=== PATIENT | male | born 1980 | race Caucasian/White ===

== ENCOUNTER 2025-10-13 04:43 | Emergency (ER) | payer OTHER, SELFPAY ==
[2025-10-13 04:49] VITALS: BP 149/93; PULSE 58; TEMP 36.6; O2SAT 99; BMI 31.6
--- NOTE | 2025-10-13 04:57 | ED.GENADUL1 ---
HPI HPI - General Adult General Chief complaint: Urogenital-Male Stated complaint: L SIDED BACK PAIN, Time Seen by Provider: 10/13/25 04:50 Source: patient Mode of arrival: walk-in History of Present Illness HPI narrative: 44-year-old male presents for left flank pain which woke him up from sleep about an hour ago. The pain is continuous and he has never had pain like this before. It is moderate to severe and he has not had any gross hematuria. No injury. Related Data Home Medications ?Medication ?Instructions ?Recorded ?Confirmed amitriptyline 10 mg tablet 10 mg PO DAILY 10/13/25 10/13/25 losartan 50 mg tablet 50 mg PO DAILY 10/13/25 10/13/25 sertraline 100 mg tablet (Zoloft) 50 mg PO DAILY 10/13/25 10/13/25 Previous Rx's ?Medication ?Instructions ?Recorded ondansetron 4 mg disintegrating 4 mg PO Q6H PRN nausea and 10/13/25 tablet vomiting #20 tabs oxycodone-acetaminophen 5 mg-325 1 tab PO Q6H PRN pain 5 days #20 10/13/25 mg tablet (Percocet) tabs tamsulosin 0.4 mg capsule (Flomax) 0.4 mg PO DAILY #7 caps 10/13/25 Allergies Allergy/AdvReac Type Severity Reaction Status Date / Time No Known Drug Allergies Allergy Verified 10/13/25 04:48 Opioid HPI Opioid Management Most Recent Opioid Data: Last ED Pain Assessment Today, 05:45 Review of Systems ROS Narrative A ten point review of systems is negative except as noted above. PFSH PFSH Social History Little interest or pleasure in doing things: not at all Feeling down, depressed, or hopeless: not at all Exam Narrative Exam Narrative: Nurses note and vital signs reviewed General:The patient appears uncomfortable. Skin:Warm, dry, no pallor noted.There is no rash noted. Head:Normocephalic, atraumatic Eye: Normal conjunctiva, no drainage Ears, Nose, Mouth, and Throat: oral mucosa is moist. Nares patent. Cardiovascular:Regular Rate and Rhythm Respiratory:Patient is in no distress, no accessory muscle use, lungs are clear to auscultation, no wheezing, rales or rhonchi Back:non-tender, no CVA tenderness bilaterally to percussion. GI: Soft and nontender, nondistended Musculoskeletal: The patient has no evidence of calf tenderness, no pitting edema, symmetrical pulses noted bilaterally Neurological:A&O, normal speech Psychiatric:Cooperative Constitutional Vital Signs, click to edit/add: Last Vital Signs Temp 97.8 F 10/13/25 04:49 Pulse 58 L 10/13/25 04:49 Resp 20 10/13/25 04:49 BP 149/93 H 10/13/25 04:49 Pulse Ox 99 10/13/25 04:49 Course Vital Signs Vital signs: Vital Signs Temperature 97.8 F 10/13/25 04:49 Pulse Rate 58 L 10/13/25 04:49 Respiratory Rate 20 10/13/25 04:49 Blood Pressure 149/93 H 10/13/25 04:49 Pulse Oximetry 99 10/13/25 04:49 Temperature 97.8 F 10/13/25 04:49 Pulse Rate 58 L 10/13/25 04:49 Respiratory Rate 20 10/13/25 04:49 Blood Pressure 149/93 H 10/13/25 04:49 Pulse Oximetry 99 10/13/25 04:49 Medical Decision Making MDM Narrative Medical decision making narrative: Proximal 5 mm stone is identified. He was given morphine and then Toradol and feels much better and is requesting discharge home. He was discharged home with prescriptions for Percocet and Zofran and Flomax and follow-up with urology. Urine strainer and specimen cup given. Treatment diagnosis and follow-up were discussed with the patient and his . Differential Diagnosis Differential Diagnosis: Kidney stone, UTI, muscle strain Lab Data Lab results reviewed: Yes I reviewed the patient's lab results Labs: Lab Results 10/13/25 10/13/25 Range/Units 05:05 05:50 WBC 7.1 (4.0-11.0) 10^3/uL RBC 4.76 (4.70-6.10) 10^6/uL Hgb 15.8 (14.0-18.0) g/dL Hct 43.2 (42.0-54.0) % MCV 90.8 (80.0-94.0) fL MCH 33.2 (25.9-34.0) pg MCHC 36.6 H (29.9-35.2) g/dL RDW 11.0 (11.0-15.0) % Plt Count 246 (150-450) 10^3/uL MPV 9.5 (9.5-13.5) fL Neut % (Auto) 51.6 (43.0-75.0) % Lymph % (Auto) 34.1 (20.5-60.0) % [place] % (Auto) 11.0 (1.7-12.0) % Eos % (Auto) 2.7 (0.9-7.0) % Baso % (Auto) 0.3 (0.2-2.0) % Neut # (Auto) 3.7 (1.4-6.5) 10^3/uL Lymph # (Auto) 2.4 (1.2-3.8) 10^3/uL [place] # (Auto) 0.8 (0.3-0.8) 10^3/uL Eos # (Auto) 0.2 (0.0-0.7) 10^3/uL Baso # (Auto) 0.0 (0.0-0.1) 10^3/uL Abs Immat Gran (auto) 0.02 (0.00-0.03) 10^3/uL Imm/Tot Granulo (auto) 0.3 (0.0-0.5) % Sodium 140 (136-145) mmol/L Potassium 3.5 (3.5-5.1) mmol/L Chloride 106 (98-107) mmol/L Carbon Dioxide 28.5 (21.0-32.0) mmol/L Anion Gap 9.0 BUN 13.0 (7.0-18.0) mg/dL Creatinine 0.96 (0.70-1.30) mg/dL Est GFR ( Amer) >60 (>=60 mL/min/1.73m^2) Est GFR (Non-Af Amer) >60 (>=60 mL/min/1.73m^2) BUN/Creatinine Ratio 13.5 Glucose 109 H (74-106) mg/dL Calcium 8.9 (8.5-10.1) mg/dL Urine Color Yellow (YELLOW) Urine Clarity Clear (CLEAR) Urine pH 7.5 (5.0-9.0) Ur Specific [place] 1.010 (1.005-1.025) Urine Protein Negative (NEG/TRACE) mg/dL Urine Glucose (UA) Negative (NEGATIVE) mg/dL Urine Ketones Negative (NEGATIVE) mg/dL Urine Occult Blood Moderate A (NEGATIVE) Urine Nitrite Negative (NEGATIVE) Urine Bilirubin Negative (NEGATIVE) Urine Urobilinogen 4.0 A (0.2-1.0) EU/dL Ur Leukocyte Esterase Negative (NEGATIVE) Urine RBC 2-5 A (0-2) #/HPF Urine WBC 0-2 A (NONE SEEN) #/HPF Ur Squamous Epith Cells Rare (NONE/RARE) #/LPF Urine Crystals None seen (None Seen) #/HPF Amorphous Sediment Few Urine Bacteria Trace A (NONE SEEN) #/HPF Urine Casts None seen (NONE SEEN) #/LPF Urine Mucus Trace A (NONE SEEN) Ur Culture Indicated? No Imaging Data CT scan - abdomen: My impression: 5 mm proximal ureteral stone on left side Discharge Plan Discharge Chief Complaint: Urogenital-Male Clinical Impression: Kidney stone on left side Patient Disposition: Home, Self-Care Time of Disposition Decision: 06:53 Condition: Good Mode of Transportation: Private Vehicle Prescriptions / Home Meds: New oxycodone-acetaminophen [Percocet] 5-325 mg tablet 1 tab PO Q6H PRN (Reason: pain) 5 Days Qty: 20 0RF tamsulosin [Flomax] 0.4 mg capsule 0.4 mg PO DAILY Qty: 7 0RF ondansetron 4 mg tablet,disintegrating 4 mg PO Q6H PRN (Reason: nausea and vomiting) Qty: 20 0RF No Action amitriptyline 10 mg tablet 10 mg PO DAILY sertraline [Zoloft] 100 mg tablet 50 mg PO DAILY losartan 50 mg tablet 50 mg PO DAILY Print Language: Bulgarian Instructions: Kidney Stones (ED), How to Strain Your Urine (ED) Referrals: Joie Chowdhury NP [Primary Care Provider] - 1 week Axel Almeida MD [Physician, Urology]
--- OUTSIDE RECORDS SUMMARY | 2025-10-13 05:03 | XMS_ITS | Clinical Summary ---
Author Organization [facility] Address [id number] [address] [place] [address] Care Team Providers Care Market Developer Name Role Phone Arturo Esparza MD Primary Care Provider [phone] Allergies No known active allergies Medications MedicationSigDispense QuantityRefillsLast FilledStart DateEnd DateStatus sertraline (ZOLOFT) 100 mg tablet Take 100 mg by mouth daily.04/04/2018Active Active Problems ProblemNoted DateDiagnosed AnynIuvvtgwmwz63/04/2022Obsessive-compulsive disorder 09/01/2022 Overview (09/01/2022): 08/2005 Intractable chronic migraine without aura and without status migrainosus 09/23/20202648Zoourme93/24/2018General medical exam04/12/20181124Yucwineb19/25/2018 Wqsvruc8606/21/20175392Jvyqbhzsn32/14/6869Cnflniwrbpj19/01/2005 Overview (09/01/2022): EGD Dr. Milligan Headache, ugtpyrds16/01/2005 Immunizations ImmunizationAdministration DatesNext DueDT05/25/1998Influenza (IM) Preservative Free08/28/2016Influenza, Injectable, quadrivalent (PF)09/10/2021,09/05/2020, 08/22/2019,07/21/2018,07/23/20170415Yppczby19/01/1999Tetanus Toxoid, Unspecified 09/29/1999 Family History Medical HistoryRelationNameCommentsAnxiety disorderBrotherDepressionBrotherNo Known ProblemsFatherNo Known ProblemsMotherAnxiety disorderSisterDepression SisterRelationNameStatusCommentsBrotherAliveFatherAliveMotherAliveSisterAlive Social History Tobacco UseTypesPacks/DayYears UsedDateSmoking Tobacco: NeverSmokeless Tobacco: Never Tobacco Cessation:Counseling Given: Not Answered Alcohol UseStandard Drinks/WeekCommentsYes0 (1 standard drink = 0.6 oz pure alcohol)rarelyPHQ-2AnswerDate RecordedTotal Tmgoe344hildcareAnswerDate XyhxthaqNclewcyaeUhzjfrj13/13/2019EmploymentAnswerDate RecordedEmploymentUnknown 05/11/2019Hunger ScreeningAnswerDate RecordedWithin the past 12 months we worried whether our food would run out before we got money to buy more.Never True07/12/2023Within the past 12 months the food we bought just didn't last and we didn't have money to get more.Never True07/12/2023urpose - LifeAnswerDate RecordedPurpose and direction in xrbmFjgctrf88/11/2021ex and Gender Information ValueDate RecordedSex Assigned at BirthNot on fileLegal WcxMxwq7604/04/2018 1:57 PM EDTGender IdentityNot on fileSexual OrientationNot on file Last Filed Vital Signs Vital SignReadingTime TakenCommentsBlood Njjiaajc398/8407/12/2023 4:06 PM EDT Opwgw476507/12/2023 4:06 PM QYEKzrzuuszvfx81 ??C (98.6 ??F)07/12/2023 4:06 PM EDT Respiratory Emwk8335 4:06 PM EDTOxygen Gqoqevivjo22%07/12/2023 4:06 PM EDTInhaled Oxygen Concentration--Ftbwza366.4 kg (261 lb)07/12/2023 4:06 PM EDT Xpsyvq730 cm (6' 4 )07/12/2023 4:06 PM EDTBody Mass Index31.77007/12/2023 4:06 PM EDT Plan of Treatment Health MaintenanceDue DateLast DoneCommentsTobacco Uesthznib08/16/1991DTaP,Tdap and Td Vaccines (2 - Tdap)05/25/Adult BMI Uenjbdyno62/14/2024 3Depression Slawjpeny78/3COVID-19 Vaccine ( season)503/, 01/22/2021Influenza Odyvpbw37/09/2022, 09/10/2021, 09/05/2020, Additional history exists Medical Devices Not on file Care Teams Team MemberRelationshipSpecialtyStart DateEnd Date Gase, Arturo Agosto MD [facility] - [facility]04/12/18
--- OUTSIDE RECORDS SUMMARY | 2025-10-13 05:03 | XMS_ITS | Clinical Summary ---
Author Organization [facility] Address [address] [facility], [address] [place] [address] Care Team Providers Care Diagrammer Name Role Phone Joie Chowdhury MANAGER CIVIL - SHOESHINER Primary Care Provide r Allergies Active AllergyReactionsCriticalityNoted XydeLfgdmlwsUrswk51/18/2020 Dust mites, rag weed Medications MedicationSigDispense QuantityRefillsLast FilledStart DateEnd DateStatus Multiple Vitamins-Minerals (DAILY MULTIVITAMIN PO) Take by mouth dailyActive amitriptyline (ELAVIL) 10 MG tablet Take 1 tablet by mouth nightly 90 tablet 4Active sertraline (ZOLOFT) 100 MG tablet Take 1 tablet by mouth daily 90 tablet 5Active vitamin D (VITAMIN D, CHOLECALCIFEROL,) 25 MCG (1000 UT) TABS tablet Take 1 tablet by mouth dailyActive losartan (COZAAR) 50 MG tablet TAKE 1 TABLET BY MOUTH EVERY DAY 90 tablet 3085Active Active Problems ProblemNoted DateDiagnosed DateVitamin D /12/2025Primary /19/2023Intractable chronic migraine without aura and without status kxzdngjiroa78/26/2020Depression, major, in zmcxmqryl17/21/2019Obesity 06/21/20188147Dcjqcoe88/24/2017Obsessive-compulsive disorder Overview (08/26/2016): 08/2005 Resolved Problems ProblemNoted DateDiagnosed DateResolved DateStrain of gluteus medius of right lower oauujwzom97InsomniaHematuria Routine general medical examination at a health care rylnrmrs53HeadacheHeadache, migraine Depression12/18/2024 Encounters DateTypeDepartmentCare PubpWatozgqmslr37/24/2025Ref[facility] [address] [place] [address] [address] [place] [address] Joie Chowdhury, MANAGER CIVIL - SHOESHINER Medication Refillfrom Last 3 Months Immunizations ImmunizationAdministration DatesNext DueCOVID-19, Inactive, MODERNA BLUE border, Primary or Immunocompromised, (age 12y+)02/21/2021,1DT (pediatric) 05/25/1998Influenza Virus Drkzham3909/12/2024,09/10/2021,09/05/2020,08/22/2019, 07/21/2018,07/23/2017,08/28/2016Influenza, AFLURIA (age 3 y+), FLUZONE, (age 6 mo+), Quadv MDV, 0.5mL08/28/2016Influenza, FLUARIX, FLULAVAL, FLUZONE (age 6 mo+) and AFLURIA, (age 3 y+), Quadv PF, 0.5mL09/02/2023,09/08/2022,09/10/2021, 09/05/2020,08/22/2019,07/21/2018,07/23/20172956Zkgmkte07/01/1999Tetanus Toxoid, iemdidru68/01/1999 Family History Medical HistoryRelationNameCommentsDepressionBrotherGregHeart DiseaseFatherRick TachycardiaHigh Blood PressureFatherRickOtherFatherRickpolycythemia, hereditary hemochromatosis, BPH, Orthostatic Hypertension, Iron overloadElevated Lipids MotherSueMigrainesMotherSueOtherMotherSueRestrictive Airway Disease, Sinusitis CancerPaternal GrandfatherGeorgeProstateDepressionSisterAnnaRelationNameStatus CommentsBrotherGregAliveFatherRickAliveMotherSueAlivePaternal GrandfatherGeorge SisterAnnaAlive Social History Tobacco UseTypesPacks/DayYears UsedDateSmoking Tobacco: NeverSmokeless Tobacco: Never Tobacco Cessation:Counseling Given: Not Answered Alcohol UseStandard Drinks/WeekCommentsNot Currently0 (1 standard drink = 0.6 oz pure alcohol)social on the weekendsAHC UtilitiesAnswerDate RecordedIn the past 12 months has the [facility], gas, oil, or water [employer] threatened to shut off services in your home?No12/18/2024Overall Financial Resource Strain (CARDIA) AnswerDate RecordedHow hard is it for you to pay for the very basics like food, housing, medical care, and heating?Not hard at all06/22/2023HQ-2AnswerDate RecordedPHQ-9 Total Nkbns837Hunger Vital SignAnswerDate RecordedWithin the past 12 months, you worried that your food would run out before you got the money to buymore.Never true12/18/2024Within the past 12 months, the food you bought just didn't last and you didn't have money to get more.Never true 12/18/2024PRAPARE - TransportationAnswerDate RecordedIn the past 12 months, has lack of transportation kept you from medical appointments or from getting medications?No12/18/2024In the past 12 months, has lack of transportation kept you from meetings, work, or from getting things needed for daily living?No 12/18/2024Housing Stability Vital SignAnswerDate RecordedUnable to Pay for Housing in the Last YearNot on file06/22/2023Number of Places Lived in the Last YearNot on file06/22/2023In the last 12 months, was there a time when you did not have a steady place to sleep or slept in odellelter (including now)?No 06/22/2023Housing Stability Vital SignAnswerDate RecordedIn the last 12 months, was there a time when you were not able to pay the mortgage or rent on time?No 12/18/2024In the past 12 months, how many times have you moved where you were living?t any time in the past 12 months, were you homeless or living in a snf (including now)?No12/18/2024Food InsecurityAnswerDate Recorded Within the past 12 months, you worried that your food would run out before you got the money to buymore.Within the past 12 months, the food you bought just didn't last and you didn't have money to get more.Sex and Gender InformationValueDate RecordedSex Assigned at BirthNot on fileLegal Sex Male01/07/2013 3:50 AM ESTGender IdentityNot on fileSexual OrientationNot on fileOccupationIndustryJob Start DateJob End Date[employer]-Teacher (world history)Not on fileNot on fileNot on file Last Filed Vital Signs Vital SignReadingTime TakenCommentsBlood Bfsuudhs217/7207 8:46 AM EDT Ogqgv416806/26/2025 8:46 AM CKGMjlofgbvode39.9 ??C (96.6 ??F)06/26/2025 8:46 AM EDTRespiratory Bxgh0723 8:08 AM EDTOxygen Ndsstgqdbg25%06/26/2025 8:46 AM EDTInhaled Oxygen Concentration--Doyvoe097.1 kg (278 lb)06/26/2025 8:46 AM URCNatxwj288 cm (6' 3.98 )12/14/2023 8:35 AM ESTBody Mass Index33.85012/14/2023 8:35 AM EST Plan of Treatment DateTypeDepartmentCare Team (Latest Contact Info)Qhecjtpsnlp89/19/2026 7:40 AM ESTOffice Visit [facility] [address] [place] [address] [address] [place] [address] Joie Chowdhury, MANAGER CIVIL - SHOESHINER [address] [facility] [address] [facility] [place] [address] 6 month f/uHealth MaintenanceDue DateLast DoneCommentsHepatitis B vaccine (1 of 3 - 19+ 3-dose series)1998DTaP/Tdap/Td vaccine (2 - Tdap)05/25/2008 05/25/19981579Pqjimvimygf19/16/2024FIT/FOBT: Average risk2024Sigmoidoscopy/CT reslwvpdvfbq39/16/2024Flu vaccine (#1)510/, 09/02/2023, 09/08/2022, Additional history existsCOVID-19 Vaccine ( - 2024- season) 503/, 1Depression Ojcqshogxa48/20/00936812/18/2024, 5Colorectal Cancer Pzylly1302/07/2028Fecal-DNA (Cologuard): Average risk 803/09/20250882Bcfuoh68, 12/13/2024, 06/30/2023, Additional history existsHIV pbzxndGnljcdixj82/02/2023Hepatitis C screen Wkajzhxlr83/02/2023Diabetes ntglnrUpcbuadptfwc49/15/2025, 06/29/2022, 07/01/2020, Additional history existsHPV vaccine (No Doses Required)Completed Hepatitis A vaccineAged OutNo longer eligible based on patient's age to complete this topicHib vaccineAged OutNo longer eligible based on patient's age to complete this topicMeningococcal (ACWY) vaccineAged OutNo longer eligible based on patient's age to complete this topicMeningococcal B vaccineAged OutNo longer eligible based on patient's age to complete this topicPneumococcal 0-49 years VaccineAged OutNo longer eligible based on patient's age to complete this topic Polio vaccineAged OutNo longer eligible based on patient's age to complete this topic Procedures Procedure NamePriorityDate/TimeAssociated DiagnosisCommentsLIPID PANELRoutine 06/22/2025 9:18 AM EDT Wellness examination FECAL DNA COLORECTAL CANCER SCREENING (COLOGUARD)Osmnlav2602/06/2025 9:15 PM EDT Encounter for colorectal cancer screening HEMOGLOBIN G4SYokaoyp14/15/2025 1:30 PM EST Wellness examination HIV YUOMMIMzpodua21/02/2023 11:20 AM EDT Wellness examination Encounter for screening for HIV HEPATITIS C DFKWDXPLNzsvtts16/02/2023 11:20 AM EDT Wellness examination Need for hepatitis C screening test from Last 3 Months or Most Recently Relevant to Health Maintenance Results * (ABNORMAL) Lipid Panel (06/22/2025 9:18 AM EDT)ComponentValueRef RangeTest MethodAnalysis TimePerformed AtPathologist SignatureCholesterol, Cczjl983(H)0 - 199 mg/dL06/22/2025 9:18 AM EDTMERCY LABORATORIESComment: Cholesterol Guidelines: <200 Desirable 200-240 ??Borderline >240 Undesirable HDL39(L)>40 mg/dL06/22/2025 9:18 AM EDTMERCY LABORATORIESComment: HDL Guidelines: <40 Undesirable 40-59 ?Borderline >59 Desirable LDL Echmwddxfdu952(H)0 - 100 mg/dL06/22/2025 9:18 AM EDTMERCY LABORATORIES Comment: LDL Guidelines: <100 Desirable 100-129 ?? Near to/above Desirable 130-159 ?? Borderline >159 Undesirable Direct (measured) LDL and calculated LDL are not interchangeable tests. Chol/HDL Ratio5.1(H)<5.007 9:18 AM EDTMERCY OKTGDNYGFREMWsrggsgvxwslr134 <150 mg/dL06/22/2025 9:18 AM EDTMERCY LABORATORIESComment: Triglyceride Guidelines: <150 Desirable 150-199 ??Borderline 200-499 ??High >499 Very high Based on AHA Guidelines for fasting triglyceride, August 2012. AYTZ408 - 30 mg/dL06/22/2025 9:18 AM EDTMERCY LABORATORIESSpecimen (Source) Anatomical Location / LateralityCollection Method / VolumeCollection Time Received TimeBloodBLOOD SPECIMEN / Hguelfg4506/22/2025 9:18 AM EDT06/22/2025 9:19 AM EDT Narrative Authorizing ProviderResult TypeResult StatusJoie Chwodhury MANAGER CIVIL - CNPCHEMISTRY ORDERABLESFinal ResultPerforming OrganizationAddressCity/State/ZIP CodePhone Number [facility] [address] [place] [address], [facility] [phone] [facility] [address] [place] [address], [facility] [phone] * Fecal DNA Colorectal cancer screening (Cologuard) (02/06/2025 9:15 PM EDT) ComponentValueRef RangeTest MethodAnalysis TimePerformed AtPathologist SignatureFIT-DNA (Cologuard)RqbufcdrSssimdrs79/18/2025 4:37 AM EDSwapsee (CLIA #:[id number])Comment: NEGATIVE TEST RESULT. A negative Cologuard result indicates a low likelihood that a colorectal cancer (CRC) or advanced adenoma (adenomatous polyps with more advanced pre-malignant features) ??is present. The chance that a person with a negative Cologuard test has a colorectal cancer is less than 1in 1500 (negative predictive value >99.9%) or has an advanced adenoma is less than 5.3% (negative predictive value 94.7%). These data are based on a prospective cross-sectional study of 10,000individuals at average risk for colorectal cancer who were screened with both Cologuard and colonoscopy. (Sterling Palencia al, N Engl J Med 2014;370(14):7135-6464) The normal value (reference range) for this assay is negative. COLOGUARD RE-SCREENING RECOMMENDATION: Periodic colorectal cancer screening is an important part ofpreventive healthcare for asymptomatic individuals at average risk for colorectal cancer. ??Following a negative Cologuard result, the [place] [employer] Society and U.S. Multi-Society Task Force screening guidelines recommend a Cologuard re-screening interval of 3 years. References: [place] [employer] Guideline for Colorectal Cancer Screening: https://www.cancer.or g/cancer/herdk-wqewmn-zesmxn/pxaiqvbia-ljozdumxi-aqplqae/acs-recommendations.htm carole; Aditya SONG, Bennett TRIANA, Julianna FLOREZ, Colorectal Cancer Screening: Recommendations for Physicians and Patients from the U.S. Multi-Society Task Force on Colorectal Cancer Screening , Am J Gastroenterology 2017; 112:6574-4359. TEST DESCRIPTION: Composite algorithmic analysis of stool DNA-biomarkers with hemoglobin immunoassay. ?? Quantitative values of individual biomarkers are not reportable and are not associated with individual biomarker result reference ranges. Cologuard is intended for colorectal cancer screening ofadults of either sex, 45 years or older, who are at average-risk for colorectal cancer (CRC). Cologuard has been approved for use by the U.S. FDA. The performance of Cologuard was established in a cross sectional study of average-risk adults aged 50-84. Cologuard performance in patients ages 45 to 49 years was estimated by sub-group analysis of near-age groups. Colonoscopies performed for a positive result may find as the most clinically significant lesion: colorectal cancer [4.0%], advanced adenoma (including sessile serrated polyps greater than or equal to 1cm diameter) [20%] or non- advanced adenoma [31%]; or no colorectal neoplasia [45%]. These estimates are derived from a prospective cross-sectional screening study of 10,000 individuals at average risk for colorectal cancer who were screened with both Cologuard and colonoscopy. (Sterling Cortes et al, N Engl J Med 2014;370(14):7385-3401.) Cologuard may produce a false negative or false positive result (no colorectal cancer or precancerous polyp present at colonoscopy follow up). A negative Cologuard test result does not guarantee the absence of CRC or advanced adenoma (pre-cancer). The current Cologuard screening interval is every 3 years. ([place] [employer] and U.S. Multi-Society Task Force). Cologuard performance data in a 10,000 patient pivotal study using colonoscopy as the reference method can be accessed at the following location: www.[employer].to be/results. Additional description of the Cologuard test process, warnings and precautions can be found at www.cologuard.com. Specimen (Source)Anatomical Location / LateralityCollection Method / Volume Collection TimeReceived TimeFeces (substance)STOOL SPECIMEN / Iozrnny1602/06/2025 9:15 PM EDT02/08/2025 3:56 PM EDT Narrative Authorizing ProviderResult TypeResult StatusJoie Chowdhury MANAGER CIVIL - SHOESHINER MICROBIOLOGY - GENERAL ORDERABLESFinal ResultPerforming OrganizationAddress [facility]/State/ZIP CodePhone Number [facility] (CLIA #:[id number]) [address] [place] [address], [facility] [phone] * Hemoglobin A1C (12/13/2024 1:30 PM EST)ComponentValueRef RangeTest Method Analysis TimePerformed AtPathologist SignatureHemoglobin A1C4.04.0 - 6.0 % 12/13/2024 1:30 PM ESTMERCY LABORATORIESEstimated Avg Vxcixee61xg/dL12/13/2024 1:30 PM ESTMERCY LABORATORIESComment: The ADA and AACC recommend providing the estimated average glucose result to permit better patient understanding of their HBA1c result. Specimen (Source)Anatomical Location / LateralityCollection Method / Volume Collection TimeReceived TimeBloodBLOOD SPECIMEN / Iqeoirt9612/13/2024 1:30 PM EST 12/13/2024 1:31 PM EST Narrative Authorizing ProviderResult TypeResult Kurt Chowdhury MANAGER CIVIL - CNPCHEMISTRY ORDERABLESFinal ResultPerforming OrganizationAddressCity/State/ZIP CodePhone Number [facility] [address] [place] [address], [facility] [phone] [facility] [address] [place] [id number], [facility] [phone] * Hepatitis C Antibody (06/30/2023 11:20 AM EDT)ComponentValueRef RangeTest MethodAnalysis TimePerformed AtPathologist SignatureHepatitis C AbNONREACTIVE IKFXDGMSKGM14/02/2023 11:20 AM EDTMERCY LABORATORIESComment: ? The hepatitis C procedure used in our laboratory is a Chemiluminescent test specific for three recombinant HCV antigens. ??A negative anti-HCV result indicates that the antibodies to hepatitis C virus are not present at this time. Individuals with reactive anti-HCV should be considered infected and infectious until proven otherwise. ??Confirmation of all equivocal or reactive results is recommended by ordering HCV RNA by PCR. Specimen (Source)Anatomical Location / LateralityCollection Method / Volume Collection TimeReceived TimeBLOOD SPECIMEN / Jbokbsd9606/30/2023 11:20 AM EDT 06/30/2023 11:21 AM EDT Narrative Authorizing ProviderResult TypeResult StatusHannah M Chowdhury MANAGER CIVIL - CNPIMMUNOLOGY ORDERABLESFinal ResultPerforming OrganizationAddressCity/State/ZIP CodePhone Number [facility] [address] [place] [address] [phone] * HIV Screen (06/30/2023 11:20 AM EDT)ComponentValueRef RangeTest MethodAnalysis TimePerformed AtPathologist SignatureHIV Ag/AbNONREACTIVENONREACTIVE 06/30/2023 11:20 AM EDTMERCY LABORATORIESComment: No laboratory evidence of HIV infection. ??If acute HIV infection is suspected, consider testing for HIV-1 RNA. Specimen (Source)Anatomical Location / LateralityCollection Method / Volume Collection TimeReceived TimeBLOOD SPECIMEN / Isycwun7506/30/2023 11:20 AM EDT 06/30/2023 11:21 AM EDT Narrative Authorizing ProviderResult TypeResult StatusJoie Chowdhury APRN - CNPIMMUNOLOGY ORDERABLESFinal ResultPerforming OrganizationAddressCity/State/ZIP CodePhone Number [facility] [address] [place] [address] [phone] from Last 3 Months or Most Recently Relevant to Health Maintenance Insurance Care Teams Team MemberRelationshipSpecialtyStart DateEnd Date Joie Chowdhury, MANAGER CIVIL - SHOESHINER [facility] [address] [address] PCP - GeneralFamily Nurse Practitioner12/08/22
[2025-10-13] MEDS: MORPHINE SULFATE 4 MG/ML VIAL IV (05:13)
[2025-10-13 05:14] LABS: Hematocrit 43.2 % (42.0-54.0); Hemoglobin 15.8 g/dL (14.0-18.0); Immature Granulocytes Abs Auto 0.02 10^3/uL (0.00-0.03); Immature Granulocytes Pct Auto 0.3 % (0.0-0.5); Lymphocytes Absolute Auto 2.4 10^3/uL (1.2-3.8); Mean Corpuscular HGB Conc 36.6 g/dL (29.9-35.2); Mean Corpuscular Hemoglobin 33.2 pg (25.9-34.0); Mean Corpuscular Volume 90.8 fL (80.0-94.0); Platelet Count 246 10^3/uL (150-450); Red Blood Count 4.76 10^6/uL (4.70-6.10); White Blood Count 7.1 10^3/uL (4.0-11.0)
[2025-10-13 05:22] LABS: Anion Gap 9.0; Blood Urea Nitrogen 13.0 mg/dL (7.0-18.0); Calcium 8.9 mg/dL (8.5-10.1); Carbon Dioxide 28.5 mmol/L (21.0-32.0); Chloride 106 mmol/L (98-107); Estimated GFR (African America >60 (>=60 mL/min/1.73m^2); Estimated GFR (Non-African Ame >60 (>=60 mL/min/1.73m^2); Glucose 109 mg/dL (74-106); Potassium 3.5 mmol/L (3.5-5.1); Sodium 140 mmol/L (136-145)
[2025-10-13 05:55] LABS: Glucose Urine UA NEGATIVE (NEGATIVE)
[2025-10-13 06:03] LABS: Cast Seen? NONE SEEN #/LPF (NONE SEEN); Crystals Seen? None Seen #/HPF (None Seen); Urine Culture Indicated NO
[2025-10-13] MEDS: KETOROLAC TROMETHAMINE 30 MG/ML VIAL IVP (06:07)
== END 2025-10-13 07:07 | disposition home or self-care (01) ==
PROVIDERS: Emergency Provider Emergency Medicine; PCP Nurse Practitioner Women's Health
DX: N20.0 Calculus of kidney (principal)
CPT/HCPCS: 36415; 74176; 80048; 81001; 85025; 96374; 96375; 99285; J1885; J2270; J2405

== ENCOUNTER 2025-10-13 16:53 | Observation (INO) | payer OTHER, SELFPAY ==
[2025-10-13 16:57] VITALS: BP 147/94; PULSE 76; TEMP 37; O2SAT 98; BMI 31.1
--- NOTE | 2025-10-13 17:08 | XR_ITS ---
[facility] [place] [id number] Patient Name: SARAI HEWITT MRN: [id number] date: 1980 Sex: M Assigned Patient Location: ER Current Patient Location: ER Accession/Order Number: [id number] Exam Date: 10/13/2025 17:55 Report Date: 10/13/2025 18:28 At the request of: BASIM MINOR MD Procedure: XR abdomen 1V Single view of abdomen Comparison CT of the abdomen and pelvis 10/13/2025 demonstrating a 4 mm obstructing stone of the left ureteropelvic junction. Large amount stool overlies the kidneys limiting assessment. The obstructing stone not well visualized. Pelvic phleboliths present. Bony structures intact. XR/XR abdomen 1V IMPRESSION: Moderate stool overlying the kidneys limiting assessment. Left UPJ stone not well visualized. Impression dictated by: Basim Krishnan M.D. 10/13/2025 6:28 PM Dictation Location: [place] [address] Electronically authenticated by: [id number] Y Date: 10/13/2025 18:28
[2025-10-13 17:20] LABS: Hematocrit 43.2 % (42.0-54.0); Hemoglobin 16.0 g/dL (14.0-18.0); Immature Granulocytes Abs Auto 0.05 10^3/uL (0.00-0.03); Immature Granulocytes Pct Auto 0.4 % (0.0-0.5); Lymphocytes Absolute Auto 1.5 10^3/uL (1.2-3.8); Mean Corpuscular HGB Conc 37.0 g/dL (29.9-35.2); Mean Corpuscular Hemoglobin 33.5 pg (25.9-34.0); Mean Corpuscular Volume 90.6 fL (80.0-94.0); Platelet Count 247 10^3/uL (150-450); Red Blood Count 4.77 10^6/uL (4.70-6.10); White Blood Count 12.3 10^3/uL (4.0-11.0)
[2025-10-13] MEDS: HYDROMORPHONE HCL 1 MG/ML CARTRIDGE IV (17:31)
[2025-10-13] MEDS: 0.9 % SODIUM CHLORIDE 1,000 ML 999 ML IV (17:31)
[2025-10-13] MEDS: KETOROLAC TROMETHAMINE 30 MG/ML VIAL 15 MG IVP (17:32)
--- NOTE | 2025-10-13 17:40 | ED.GENADUL1 ---
HPI HPI - General Adult General Chief complaint: Abdominal Pain Stated complaint: PAIN FROM POSS KIDNEY STONE Time Seen by Provider: 10/13/25 17:00 Source: patient Mode of arrival: walk-in Limitations: no limitations History of Present Illness HPI narrative: Patient is a 44-year-old male who is presenting today with return of acute left lower back pain, left flank pain, left lower quadrant pain. Patient was just seen her earlier today and discharged around 7 AM. Patient was noted to have approximately 5 mm left kidney stone. Patient has no history of kidney stones. Patient has no fevers. Patient has no chest pain or shortness of breath. Patient dad is at bedside. Patient has no urinary frequency urgency or burning. Patient has no diarrhea or constipation. Unless otherwise stated in this report or unable to obtain because of the patient's clinical or mental status as evidenced by medical record, the patient's positive and negative responses for review of systems for constitutional, eyes, ENT, cardiovascular, respiratory, gastrointestinal, neurological, , musculoskeletal, and integument systems and related systems to the presenting problem are either stated in the history of present illness or were not pertinent or were negative for the symptoms and/or complaints related to the presenting medical problem. Nurses note and vital signs reviewed and patient is not hypoxic. General: The patient appears in moderate distress secondary to pain, clammy/diaphoretic, holding his left flank and left lower back. Patient is resting uncomfortably on cart. Patient is not toxic, lethargic, or listless Skin: Warm, dry, no pallor noted. There is no rash noted. No petechiae, purpura. Head: Normocephalic, atraumatic Eye: Normal conjunctiva, no drainage, EOMI. PERRL Ears, Nose, Mouth, and Throat: oral mucosa is moist. Nares patent. Mouth without vesicles. Cardiovascular: Regular Rate and Rhythm, no murmur, gallop, rub Respiratory: Patient is in no distress, no accessory muscle use, lungs are clear to auscultation, no wheezing, rales or rhonchi Back: non-tender besides left moderate CVA tenderness to palpation, no right CVA tenderness to percussion. No CT LS midline pain. GI: no tenderness to palpation, no masses appreciated. No rebound, guarding, or rigidity noted. No distention; patient has moderate left flank and moderate left lower quadrant tenderness to palpation. No right flank tenderness to palpation, no right lower quadrant tenderness to palpation. Mild suprapubic tenderness to palpation. Musculoskeletal: Patient has full range of motion of all of the extremities, no motor, sensory, or focal neurological deficits Neurological: A&O x4, normal speech Psychiatric: Cooperative Related Data Home Medications ?Medication ?Instructions ?Recorded ?Confirmed amitriptyline 10 mg tablet 10 mg PO DAILY 10/13/25 10/13/25 losartan 50 mg tablet 50 mg PO DAILY 10/13/25 10/13/25 sertraline 100 mg tablet (Zoloft) 50 mg PO DAILY 10/13/25 10/13/25 Previous Rx's ?Medication ?Instructions ?Recorded ketorolac 10 mg tablet 10 mg PO Q8H PRN pain 1 day #10 10/13/25 tabs ondansetron 4 mg disintegrating 4 mg PO Q6H PRN nausea and 10/13/25 tablet vomiting #20 tabs oxycodone-acetaminophen 5 mg-325 1 tab PO Q6H PRN pain 5 days #20 10/13/25 mg tablet (Percocet) tabs tamsulosin 0.4 mg capsule (Flomax) 0.4 mg PO DAILY #7 caps 10/13/25 Allergies Allergy/AdvReac Type Severity Reaction Status Date / Time No Known Drug Allergies Allergy Verified 10/13/25 04:48 Opioid HPI Opioid Management Most Recent Opioid Data: Last Pain Scale 9 Today, 19:31 Last ED Pain Assessment Today, 05:45 Last MAR Pain Assessment Today, 19:31 PFSH PFSH Social History Little interest or pleasure in doing things: not at all Feeling down, depressed, or hopeless: not at all Exam Constitutional Vital Signs, click to edit/add: Last Vital Signs Temp 98.6 F 10/13/25 16:57 Pulse 82 10/13/25 19:22 Resp 18 10/13/25 19:22 BP 136/87 10/13/25 19:22 Pulse Ox 99 10/13/25 19:22 O2 Del Method Room Air 10/13/25 19:22 Course Vital Signs Vital signs: Vital Signs Temperature 98.6 F 10/13/25 16:57 Pulse Rate 76 10/13/25 16:57 Respiratory Rate 18 10/13/25 16:57 Blood Pressure 147/94 H 10/13/25 16:57 Pulse Oximetry 98 10/13/25 16:57 Oxygen Delivery Method Room Air 10/13/25 16:57 Temperature 98.6 F 10/13/25 16:57 Pulse Rate 82 10/13/25 19:22 Respiratory Rate 18 10/13/25 19:22 Blood Pressure 136/87 10/13/25 19:22 Pulse Oximetry 99 10/13/25 19:22 Oxygen Delivery Method Room Air 10/13/25 19:22 Medical Decision Making MDM Narrative Medical decision making narrative: Patient seen and examined: Patient have IVF, fluids, Toradol, Dilaudid, Zofran, IV fluids, x-ray Differential diagnosis includes but is not limited to: Renal colic, obstructing stone, UTI, constipation, Relevant laboratory interpretation: White blood cell 12, BUN and creatinine were 15/1. Total bilirubin 1.7, direct bilirubin 0.4. Urine shows protein, mild ketones, large blood. Radiological studies: KUB x-ray shows moderate to large constipation, no acute obstruction ileus or air-fluid levels. Reevaluation: Patient was educated for 10 to 15 minutes in the sitting next to him and talking him about pain control. We had discussed maximal amount of Percocet that he could take daily and how often, along with using Toradol, along with Zofran and IV fluids. Patient is already using Flomax daily. I prescribed Toradol so that patient could pick it up at the pharmacy before they closed. 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 Patient will be sent home with 2 Toradol along with urine strainers. Social barriers to healthcare: There are no food insecurities, there is no issue with transportation, there are no insurance barriers. Disposition: Patient just had a CT done this morning that showed a obstructing 4 mm calculus in the left ureteropelvic junction with mild hydronephrosis, cholelithiasis, mild fatty liver disease. Ureters are normal in caliber, urinary bladder is normal. [id number] Jo on the phone, on-call for urology. Patient cannot have any type of stents or surgical procedure done until Wednesday. Discussion was had on discharge versus admission, treating pain, and procedure could be done on Wednesday if indicated. 1909 patient felt comfortable going home. Patient was discharged. I texted and let Dr. Jo know that the patient was going home, he will call the office on Wednesday to follow-up. Patient understands that he may return back to the ER at any time for intractable nausea, vomiting, abdominal pain. 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 Patient understands that if he is admitted to [facility], he will be admitted for pain control, and surgical procedure could be done on Wednesday if indicated. Patient understands that we could transfer patient to [facility] as well if needed and performing a stent or surgery tomorrow is a possibility but not a guarantee. Patient also may be discharged, manage the pain at home, and then return back to the ER if needed. Patient wants to go home. Patient does not want to be admitted to the hospital. Father will be driving patient home. A lot of education was done on increasing fluids at home, constipation that may occur with using narcotics, and how to take anti-inflammatories, Tylenol, and narcotics at home together. Patient understands this, no questions at discharge. Lab Data Labs: Lab Results 10/13/25 10/13/25 10/13/25 Range/Units 17:06 17:40 18:25 WBC 12.3 H (4.0-11.0) 10^3/uL RBC 4.77 (4.70-6.10) 10^6/uL Hgb 16.0 (14.0-18.0) g/dL Hct 43.2 (42.0-54.0) % MCV 90.6 (80.0-94.0) fL MCH 33.5 (25.9-34.0) pg MCHC 37.0 H (29.9-35.2) g/dL RDW 11.0 (11.0-15.0) % Plt Count 247 (150-450) 10^3/uL MPV 9.7 (9.5-13.5) fL Neut % (Auto) 82.4 H (43.0-75.0) % Lymph % (Auto) 11.9 L (20.5-60.0) % [place] % (Auto) 4.7 (1.7-12.0) % Eos % (Auto) 0.4 L (0.9-7.0) % Baso % (Auto) 0.2 (0.2-2.0) % Neut # (Auto) 10.2 H (1.4-6.5) 10^3/uL Lymph # (Auto) 1.5 (1.2-3.8) 10^3/uL [place] # (Auto) 0.6 (0.3-0.8) 10^3/uL Eos # (Auto) 0.1 (0.0-0.7) 10^3/uL Baso # (Auto) 0.0 (0.0-0.1) 10^3/uL Abs Immat Gran (auto) 0.05 H (0.00-0.03) 10^3/uL Imm/Tot Granulo (auto) 0.4 (0.0-0.5) % Sodium 140 (136-145) mmol/L Potassium 3.9 (3.5-5.1) mmol/L Chloride 102 (98-107) mmol/L Carbon Dioxide 25.9 (21.0-32.0) mmol/L Anion Gap 16.0 BUN 15.0 (7.0-18.0) mg/dL Creatinine 1.16 (0.70-1.30) mg/dL Est GFR ( Amer) >60 (>=60 mL/min/1.73m^2) Est GFR (Non-Af Amer) >60 (>=60 mL/min/1.73m^2) BUN/Creatinine Ratio 12.9 Glucose 120 H (74-106) mg/dL Lactate 1.2 (0.4-2.0) mmol/L Calcium 9.5 (8.5-10.1) mg/dL Total Bilirubin 1.7 H (0.2-1.0) mg/dL Direct Bilirubin 0.4 H (0.0-0.2) mg/dL AST 30 (15-37) U/L ALT 60 (16-63) U/L Alkaline Phosphatase 67 (46-116) U/L Troponin I High Sens 15.3 (4.0-76.1) pg/mL Total Protein 7.5 (6.4-8.2) g/dL Albumin 4.2 (3.4-5.0) g/dL Globulin 3.3 g/dL Albumin/Globulin Ratio 1.3 Lipase 59.0 (16.0-77.0) U/L Urine Color Dk. yellow (YELLOW) Urine Clarity Clear (CLEAR) Urine pH 6.5 (5.0-9.0) Ur Specific [place] 1.025 (1.005-1.025) Urine Protein 30 A (NEG/TRACE) mg/dL Urine Glucose (UA) Negative (NEGATIVE) mg/dL Urine Ketones 15 A (NEGATIVE) mg/dL Urine Occult Blood Large A (NEGATIVE) Urine Nitrite Negative (NEGATIVE) Urine Bilirubin Small A (NEGATIVE) Urine Urobilinogen >=8.0 (0.2-1.0) EU/dL Ur Leukocyte Esterase Negative (NEGATIVE) Urine RBC 5-10 A (0-2) #/HPF Urine WBC 0-2 A (NONE SEEN) #/HPF Ur Squamous Epith Cells Rare (NONE/RARE) #/LPF Urine Crystals None seen (None Seen) #/HPF Urine Bacteria Trace A (NONE SEEN) #/HPF Urine Casts None seen (NONE SEEN) #/LPF Urine Mucus Trace A (NONE SEEN) Discharge Plan Discharge Chief Complaint: Abdominal Pain Clinical Impression: Kidney stone on left side Patient Disposition: Admitted As Inpatient Time of Disposition Decision: 19:10 Condition: Fair Additional Instructions: You may take 2 tabs every 4 hours as needed for severe pain of Percocet. Be cautious of constipation with taking Percocet and narcotics. Continue increase fluids. Call on Wednesday to follow-up with urologist for outpatient treatment. Urinate with urine strainers every time you are urinating. A copy of the CT report has been given to you along with a copy of the x-ray report You may alternate Tylenol and either Motrin/Advil/ibuprofen every 4 hours for pain or fever. Take Motrin, Advil, ibuprofen with food or water to help prevent acid reflux/ulcers. If you are having severe pain, substitute [place] for Tylenol. The max dose of Tylenol is 3000mg a day. Do not take Tylenol and Percocet together, you may accidentally take too much Tylenol in 1 day. [place] may cause constipation, make sure that you are taking daily stool softeners to help prevent constipation when using Percocet. Increase fluids for hydration as well. Return back to the ER for intractable nausea, vomiting, pain, or any other acute complaints
[2025-10-13 17:53] LABS: Alanine Aminotransferase 60 U/L (16-63); Albumin Globulin Ratio 1.3; Albumin Level 4.2 g/dL (3.4-5.0); Alkaline Phosphatase 67 U/L (46-116); Anion Gap 16.0; Aspartate Amino Transferase 30 U/L (15-37); Blood Urea Nitrogen 15.0 mg/dL (7.0-18.0); Calcium 9.5 mg/dL (8.5-10.1); Carbon Dioxide 25.9 mmol/L (21.0-32.0); Chloride 102 mmol/L (98-107); Estimated GFR (African America >60 (>=60 mL/min/1.73m^2); Estimated GFR (Non-African Ame >60 (>=60 mL/min/1.73m^2); Globulin 3.3 g/dL; Glucose 120 mg/dL (74-106); Lipase 59.0 U/L (16.0-77.0); Potassium 3.9 mmol/L (3.5-5.1); Sodium 140 mmol/L (136-145); Total Protein 7.5 g/dL (6.4-8.2)
[2025-10-13] MEDS: PROCHLORPERAZINE 10 MG/2 ML VIAL 5 MG IV (18:17)
[2025-10-13 18:28] LABS: Lactate/Lactic Acid 1.2 mmol/L (0.4-2.0)
[2025-10-13 18:33] LABS: Glucose Urine UA NEGATIVE (NEGATIVE)
[2025-10-13 18:43] LABS: Cast Seen? NONE SEEN #/LPF (NONE SEEN); Crystals Seen? None Seen #/HPF (None Seen)
[2025-10-13] MEDS: KETOROLAC TROMETHAMINE 10 MG TABLET 20 MG PO (19:19)
[2025-10-13 19:22] VITALS: BP 136/87; PULSE 82; O2SAT 99
[2025-10-13] MEDS: MORPHINE SULFATE 4 MG/ML VIAL IV (19:31)
--- NOTE | 2025-10-13 20:07 | ED.GENADUL1 ---
HPI HPI - General Adult General Chief complaint: Abdominal Pain Stated complaint: PAIN FROM POSS KIDNEY STONE Time Seen by Provider: 10/13/25 17:00 Source: patient Mode of arrival: walk-in Limitations: no limitations History of Present Illness HPI narrative: 44-year-old male presented to the emergency department and was initially seen by Dr. Hester and signed out to me after discussing the case with him thoroughly. The initial intention was to discharge patient home but he had continued pain and was given additional pain medication. Related Data Home Medications ?Medication ?Instructions ?Recorded ?Confirmed amitriptyline 10 mg tablet 10 mg PO DAILY 10/13/25 10/13/25 losartan 50 mg tablet 50 mg PO DAILY 10/13/25 10/13/25 sertraline 100 mg tablet (Zoloft) 50 mg PO DAILY 10/13/25 10/13/25 Previous Rx's ?Medication ?Instructions ?Recorded ketorolac 10 mg tablet 10 mg PO Q8H PRN pain 1 day #10 10/13/25 tabs ondansetron 4 mg disintegrating 4 mg PO Q6H PRN nausea and 10/13/25 tablet vomiting #20 tabs oxycodone-acetaminophen 5 mg-325 1 tab PO Q6H PRN pain 5 days #20 10/13/25 mg tablet (Percocet) tabs tamsulosin 0.4 mg capsule (Flomax) 0.4 mg PO DAILY #7 caps 10/13/25 Allergies Allergy/AdvReac Type Severity Reaction Status Date / Time No Known Drug Allergies Allergy Verified 10/13/25 04:48 Opioid HPI Opioid Management Most Recent Opioid Data: Last Pain Scale 9 Today, 19:31 Last ED Pain Assessment Today, 05:45 Last MAR Pain Assessment Today, 19:31 PFSH PFSH Social History Little interest or pleasure in doing things: not at all Feeling down, depressed, or hopeless: not at all Exam Constitutional Vital Signs, click to edit/add: Last Vital Signs Temp 98.6 F 10/13/25 16:57 Pulse 82 10/13/25 19:22 Resp 18 10/13/25 19:22 BP 136/87 10/13/25 19:22 Pulse Ox 99 10/13/25 19:22 O2 Del Method Room Air 10/13/25 19:22 Course Vital Signs Vital signs: Vital Signs Temperature 98.6 F 10/13/25 16:57 Pulse Rate 76 10/13/25 16:57 Respiratory Rate 18 10/13/25 16:57 Blood Pressure 147/94 H 10/13/25 16:57 Pulse Oximetry 98 10/13/25 16:57 Oxygen Delivery Method Room Air 10/13/25 16:57 Temperature 98.6 F 10/13/25 16:57 Pulse Rate 82 10/13/25 19:22 Respiratory Rate 18 10/13/25 19:22 Blood Pressure 136/87 10/13/25 19:22 Pulse Oximetry 99 10/13/25 19:22 Oxygen Delivery Method Room Air 10/13/25 19:22 Medical Decision Making MDM Narrative Medical decision making narrative: Case discussed with Dr. Jo and the plan is to admit him here and do a procedure, likely stent, on Wednesday morning, the day after tomorrow. He was given the option of being transferred to [facility] but prefers to stay here. Findings are discussed with the patient. Differential Diagnosis Differential Diagnosis: Kidney stone, renal colic Lab Data Lab results reviewed: Yes I reviewed the patient's lab results Labs: Lab Results 10/13/25 10/13/25 10/13/25 Range/Units 17:06 17:40 18:25 WBC 12.3 H (4.0-11.0) 10^3/uL RBC 4.77 (4.70-6.10) 10^6/uL Hgb 16.0 (14.0-18.0) g/dL Hct 43.2 (42.0-54.0) % MCV 90.6 (80.0-94.0) fL MCH 33.5 (25.9-34.0) pg MCHC 37.0 H (29.9-35.2) g/dL RDW 11.0 (11.0-15.0) % Plt Count 247 (150-450) 10^3/uL MPV 9.7 (9.5-13.5) fL Neut % (Auto) 82.4 H (43.0-75.0) % Lymph % (Auto) 11.9 L (20.5-60.0) % [place] % (Auto) 4.7 (1.7-12.0) % Eos % (Auto) 0.4 L (0.9-7.0) % Baso % (Auto) 0.2 (0.2-2.0) % Neut # (Auto) 10.2 H (1.4-6.5) 10^3/uL Lymph # (Auto) 1.5 (1.2-3.8) 10^3/uL [place] # (Auto) 0.6 (0.3-0.8) 10^3/uL Eos # (Auto) 0.1 (0.0-0.7) 10^3/uL Baso # (Auto) 0.0 (0.0-0.1) 10^3/uL Abs Immat Gran (auto) 0.05 H (0.00-0.03) 10^3/uL Imm/Tot Granulo (auto) 0.4 (0.0-0.5) % Sodium 140 (136-145) mmol/L Potassium 3.9 (3.5-5.1) mmol/L Chloride 102 (98-107) mmol/L Carbon Dioxide 25.9 (21.0-32.0) mmol/L Anion Gap 16.0 BUN 15.0 (7.0-18.0) mg/dL Creatinine 1.16 (0.70-1.30) mg/dL Est GFR ( Amer) >60 (>=60 mL/min/1.73m^2) Est GFR (Non-Af Amer) >60 (>=60 mL/min/1.73m^2) BUN/Creatinine Ratio 12.9 Glucose 120 H (74-106) mg/dL Lactate 1.2 (0.4-2.0) mmol/L Calcium 9.5 (8.5-10.1) mg/dL Total Bilirubin 1.7 H (0.2-1.0) mg/dL Direct Bilirubin 0.4 H (0.0-0.2) mg/dL AST 30 (15-37) U/L ALT 60 (16-63) U/L Alkaline Phosphatase 67 (46-116) U/L Troponin I High Sens 15.3 (4.0-76.1) pg/mL Total Protein 7.5 (6.4-8.2) g/dL Albumin 4.2 (3.4-5.0) g/dL Globulin 3.3 g/dL Albumin/Globulin Ratio 1.3 Lipase 59.0 (16.0-77.0) U/L Urine Color Dk. yellow (YELLOW) Urine Clarity Clear (CLEAR) Urine pH 6.5 (5.0-9.0) Ur Specific [place] 1.025 (1.005-1.025) Urine Protein 30 A (NEG/TRACE) mg/dL Urine Glucose (UA) Negative (NEGATIVE) mg/dL Urine Ketones 15 A (NEGATIVE) mg/dL Urine Occult Blood Large A (NEGATIVE) Urine Nitrite Negative (NEGATIVE) Urine Bilirubin Small A (NEGATIVE) Urine Urobilinogen >=8.0 (0.2-1.0) EU/dL Ur Leukocyte Esterase Negative (NEGATIVE) Urine RBC 5-10 A (0-2) #/HPF Urine WBC 0-2 A (NONE SEEN) #/HPF Ur Squamous Epith Cells Rare (NONE/RARE) #/LPF Urine Crystals None seen (None Seen) #/HPF Urine Bacteria Trace A (NONE SEEN) #/HPF Urine Casts None seen (NONE SEEN) #/LPF Urine Mucus Trace A (NONE SEEN) Discharge Plan Discharge Chief Complaint: Abdominal Pain Clinical Impression: Kidney stone on left side Patient Disposition: Admitted As Inpatient Time of Disposition Decision: 19:10 Condition: Fair Additional Instructions: You may take 2 tabs every 4 hours as needed for severe pain of Percocet. Be cautious of constipation with taking Percocet and narcotics. Continue increase fluids. Call on Wednesday to follow-up with urologist for outpatient treatment. Urinate with urine strainers every time you are urinating. A copy of the CT report has been given to you along with a copy of the x-ray report You may alternate Tylenol and either Motrin/Advil/ibuprofen every 4 hours for pain or fever. Take Motrin, Advil, ibuprofen with food or water to help prevent acid reflux/ulcers. If you are having severe pain, substitute [place] for Tylenol. The max dose of Tylenol is 3000mg a day. Do not take Tylenol and Percocet together, you may accidentally take too much Tylenol in 1 day. [place] may cause constipation, make sure that you are taking daily stool softeners to help prevent constipation when using Percocet. Increase fluids for hydration as well. Return back to the ER for intractable nausea, vomiting, pain, or any other acute complaints
[2025-10-13] MEDS: 0.9 % SODIUM CHLORIDE 1,000 ML 1000 ML IV (20:10)
[2025-10-13 20:35] VITALS: BP 142/74; PULSE 81; O2SAT 99
[2025-10-13 20:59] VITALS: BP 133/75; PULSE 65; TEMP 36.5; O2SAT 97; BMI 33.1
[2025-10-13] MEDS: TAMSULOSIN HCL 0.4 MG CAPSULE PO (21:41)
[2025-10-13] MEDS: 0.9 % SODIUM CHLORIDE 1,000 ML 100 ML IV (21:43)
[2025-10-13] MEDS: OXYCODONE HCL 5 MG TABLET PO (21:46)
[2025-10-14] VITALS: BP 118/69; PULSE 69; TEMP 36.7; O2SAT 94
[2025-10-14 05:27] VITALS: BP 118/71; PULSE 76; TEMP 36.6; O2SAT 93
[2025-10-14 06:40] LABS: Hematocrit 40.5 % (42.0-54.0); Hemoglobin 14.5 g/dL (14.0-18.0); Immature Granulocytes Abs Auto 0.02 10^3/uL (0.00-0.03); Immature Granulocytes Pct Auto 0.2 % (0.0-0.5); Lymphocytes Absolute Auto 1.8 10^3/uL (1.2-3.8); Mean Corpuscular HGB Conc 35.8 g/dL (29.9-35.2); Mean Corpuscular Hemoglobin 33.1 pg (25.9-34.0); Mean Corpuscular Volume 92.5 fL (80.0-94.0); Platelet Count 206 10^3/uL (150-450); Red Blood Count 4.38 10^6/uL (4.70-6.10); White Blood Count 9.5 10^3/uL (4.0-11.0)
[2025-10-14 07:08] LABS: Alanine Aminotransferase 44 U/L (16-63); Albumin Globulin Ratio 1.1; Albumin Level 3.3 g/dL (3.4-5.0); Alkaline Phosphatase 59 U/L (46-116); Anion Gap 14.5; Aspartate Amino Transferase 25 U/L (15-37); Blood Urea Nitrogen 13.0 mg/dL (7.0-18.0); Calcium 8.5 mg/dL (8.5-10.1); Carbon Dioxide 26.3 mmol/L (21.0-32.0); Chloride 104 mmol/L (98-107); Estimated GFR (African America 58 (>=60 mL/min/1.73m^2); Estimated GFR (Non-African Ame 48 (>=60 mL/min/1.73m^2); Globulin 3.0 g/dL; Glucose 102 mg/dL (74-106); Potassium 3.8 mmol/L (3.5-5.1); Sodium 141 mmol/L (136-145); Total Protein 6.3 g/dL (6.4-8.2)
[2025-10-14 07:24] VITALS: BP 107/71; PULSE 70; TEMP 36.9; O2SAT 94
--- NOTE | 2025-10-14 08:00 | ECG_ITS ---
[facility] Test Date: 2025-10-14 Pat Name: SARAI HEWITT Department: Room: 2191 Gender: Male Assessment Rn: : [id number] Requested By: [id number] Order Number: [id number] Reading MD: ROBBIN AKHTAR M.D. Measurements Intervals [place] Rate: 68 P: 39 WV: 168 QRS: 39 QRSD: 110 T: 31 QT: 395 QTc: 421 Interpretive Statements SINUS RHYTHM LOW QRS VOLTAGE IN PRECORDIAL LEADS [QRS DEFLECTION < 1.0 mV IN CHEST LEADS] NONSPECIFIC T-WAVE ABNORMALITY Abnormal ECG No previous ECG available for comparison Electronically Signed On 10-14-2025 6:47:54 EST by ROBBIN AKHTAR M.D.
[2025-10-14] MEDS: SERTRALINE HCL 100 MG TABLET 50 MG PO (08:37)
[2025-10-14] MEDS: LOSARTAN POTASSIUM 50 MG TABLET PO (08:37)
[2025-10-14] MEDS: TAMSULOSIN HCL 0.4 MG CAPSULE PO ×2 (08:37→22:24)
[2025-10-14] MEDS: OXYCODONE HCL 5 MG TABLET PO ×2 (09:38→15:59)
[2025-10-14] MEDS: KETOROLAC TROMETHAMINE 30 MG/ML VIAL IVP ×3 (11:17→23:16)
[2025-10-14] MEDS: PANTOPRAZOLE SODIUM 40 MG VIAL IV ×2 (11:17→22:24)
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
[2025-10-14 15:49] VITALS: BP 116/71; PULSE 73; TEMP 37.3; O2SAT 97
[2025-10-14 20:00] VITALS: BP 103/67; PULSE 94; TEMP 37.2; O2SAT 92
[2025-10-14] MEDS: 0.9 % SODIUM CHLORIDE 250 ML 10 ML IV (22:16)
[2025-10-15] VITALS (26 sets, daily range): BP systolic 111–160; BP diastolic 54–96; PULSE 59–94; TEMP 36.5–37.4; O2SAT 91–100
[2025-10-15] MEDS: KETOROLAC TROMETHAMINE 30 MG/ML VIAL IVP (05:44)
[2025-10-15 05:51] LABS: Hematocrit 37.6 % (42.0-54.0); Hemoglobin 13.6 g/dL (14.0-18.0); Immature Granulocytes Abs Auto 0.03 10^3/uL (0.00-0.03); Immature Granulocytes Pct Auto 0.4 % (0.0-0.5); Lymphocytes Absolute Auto 1.6 10^3/uL (1.2-3.8); Mean Corpuscular HGB Conc 36.2 g/dL (29.9-35.2); Mean Corpuscular Hemoglobin 33.5 pg (25.9-34.0); Mean Corpuscular Volume 92.6 fL (80.0-94.0); Platelet Count 213 10^3/uL (150-450); Red Blood Count 4.06 10^6/uL (4.70-6.10); White Blood Count 7.9 10^3/uL (4.0-11.0)
[2025-10-15 06:14] LABS: Partial Thromboplastin Time 28.2 sec (22.3-36.2)
[2025-10-15 06:16] LABS: Alanine Aminotransferase 43 U/L (16-63); Albumin Globulin Ratio 1.1; Albumin Level 3.2 g/dL (3.4-5.0); Alkaline Phosphatase 55 U/L (46-116); Anion Gap 10.6; Aspartate Amino Transferase 23 U/L (15-37); Blood Urea Nitrogen 14.0 mg/dL (7.0-18.0); Calcium 8.5 mg/dL (8.5-10.1); Carbon Dioxide 28.2 mmol/L (21.0-32.0); Chloride 106 mmol/L (98-107); Estimated GFR (African America >60 (>=60 mL/min/1.73m^2); Estimated GFR (Non-African Ame 54 (>=60 mL/min/1.73m^2); Globulin 2.9 g/dL; Glucose 97 mg/dL (74-106); Potassium 3.8 mmol/L (3.5-5.1); Sodium 141 mmol/L (136-145); Total Protein 6.1 g/dL (6.4-8.2)
--- NOTE | 2025-10-15 07:55 | CM.NOTE ---
Rounds made with Dr. Torrez, discussed plan of care with pt. Pt will go to OR today for kidney stone. Pt denies pain at this time. No discharge today. Clarified status, pt will be OBS status.
--- NOTE | 2025-10-15 08:01 | P.PN_ITS ---
Progress Note: Subjective Subjective Interval history: Following up on the patient. Patient reported that the left side of the abdomen is no longer tender. No hematuria. No chest pain. No cough or congestion Exam Narrative Exam Narrative: [pt is awake and alert. oriented to place, time and person HEENT: [place] conjunctiva and NL buccal mucosa Neck: Supple, no tenderness Endocrine: No Thyromegaly. Vascular: No JVD or carotid bruit. Lymphatic: No cervical lymphadenopathy. Chest: CTA no DTP. Heart RRR, no extra sound or murmur. Abd: Soft, no tenderness, no rebound and no rigidity. Increase abd girth therefo re clinically I could not exclude the possibility of intra abd mass or organomegaly. No tenderness in the left flank or left upper, mid and lower abdomen. LE: No cyanosis or clubbing, no varices or edema. Neuro: A A O. Nl speech, comprehension and attention. Nl and symetrical motor and tone examination through out. []] Constitutional Vital Signs, click to edit/add: Last Vital Signs Temp 98.1 F 10/15/25 04:00 Pulse 74 10/15/25 04:00 Resp 16 10/15/25 04:00 BP 111/62 10/15/25 04:00 Pulse Ox 96 10/15/25 04:00 O2 Del Method Room Air 10/15/25 04:00 Progress Note: Objective Labs Labs: Short CBC 10/15/25 Range/Units 05:16 WBC 7.9 (4.0-11.0) 10^3/uL Hgb 13.6 L (14.0-18.0) g/dL Hct 37.6 L (42.0-54.0) % Plt Count 213 (150-450) 10^3/uL BMP 10/15/25 05:16 Sodium 141 Potassium 3.8 Chloride 106 Carbon Dioxide 28.2 BUN 14.0 Creatinine 1.41 H Glucose 97 Calcium 8.5 Liver Function 10/15/25 Range/Units 05:16 Total Bilirubin 1.2 H (0.2-1.0) mg/dL AST 23 (15-37) U/L ALT 43 (16-63) U/L Alkaline Phosphatase 55 (46-116) U/L Albumin 3.2 L (3.4-5.0) g/dL Progress Note: A&P Assessment and Plan (1) Kidney stone on left side: (2) Essential hypertension: (3) Intractable pain: (4) Nausea and vomiting: Plan 4 mm left ureteral obstructing stone with hydro CASEY Discontinue Toradol and losartan Continue IV fluid infusion For cystoscopy and stent today as deemed to be appropriate by urology Hypertension Blood pressure is on the low side Hold losartan DVT prophylaxis Mechanical SCD due to anticipated procedure.
--- NOTE | 2025-10-15 12:39 | P.CN_ITS ---
Consult Note: [facility] Data of Consult Consult date: 10/15/25 Requesting Physician: Avelina Torrez MD Primary Care Provider: Joie Chowdhury NP Consult Narrative Reason for consult: ureteral stone, pain Narrative: 45-year-old man with history of HTN presented to the ER twice on Wednesday due to intractable left flank pain, nausea/emesis secondary to a 4 mm left UPJ stone with mild hydronephrosis. He was about to leave home the second time, when the pain returned and he opted to be admitted to hospitalist for pain control given failed outpatient pain control (percocet, tamsulosin). Labs showed mild leukocytosis 12, Cr 1.6 from normal baseline, UA neg for UTI. He was started on Rocephin. [place] [facility] [place] given no OR on the weekend here. During his hospitalization, his pain and WBC have been improving. However no stone passage noted and still with acute renal injury, Cr 1.4. Denies fever, chills, nausea, emesis or difficulty voiding. First stone event Denies hx TX, stroke or DM. PSH: left knee surgery, orchiectomy for undescended testes and inguinal hernia repair x 2 as a child He works as a principal embedded software engineer. cc:: CC: Avelina Torrez MD Review of Systems ROS Status of ROS 10 or more systems reviewed and unremark able except as noted in history and below Constitutional Denies: fever or chills Cardiovascular Denies: chest pain or palpitations Respiratory Denies: shortness of breath or cough Gastrointestinal Reports: nausea (resolved) and vomiting (resolved) Genitourinary Reports: testicular pain (resolving); Denies: painful urination, urinary frequency or difficulty urinating Musculoskeletal Reports: back pain (resolving); Denies: extremity swelling Integumentary/Breast Denies: rash or itching Neurological Denies: numbness in extremities or weakness in extremities Hematologic/Lymphatic Denies: easy bruising or easy bleeding [facility] Medical History Anxiety ?F41.9 - Anxiety disorder, unspecified (ICD-10) Depression ?F32.A - Depression, unspecified (ICD-10) Hypertension ?I10 - Essential (primary) hypertension (ICD-10) Surgical History Hx of knee surgery ?Z98.890 - Other specified postprocedural states (ICD-10) Family History Mother Family history of hypertension Social History Within the past year, how often did you have a drink containing alcohol: monthly or less Smoking status: Never smoker Non-prescribed substance use: denies use Highest level of school completed/degree received: Master's degree Are you now , , , , never or living with a partner: In a typical week, how many times do you talk on the telephone with family, friends, or neighbors: 3 or more times per week How often do you get together with friends or relatives: 3 or more times per week Little interest or pleasure in doing things: not at all Feeling down, depressed, or hopeless: not at all Feel stressed/tense/nervous/anxious/difficulty sleeping: not at all Do you think of yourself as: straight/heterosexual Gender Identity: male Meds Home Medications and Allergies Home Medications ?Medication ?Instructions ?Recorded ?Confirmed ?Type amitriptyline 10 mg tablet 10 mg PO DAILY 10/13/25 History ketorolac 10 mg tablet 10 mg PO Q8H PRN pain 1 day #10 10/13/25 Rx tabs losartan 50 mg tablet 50 mg PO DAILY 10/13/2509/29 History ondansetron 4 mg disintegrating 4 mg PO Q6H PRN nausea and 10/13/25 10/13/25 Rx tablet vomiting #20 tabs oxycodone-acetaminophen 5 mg-325 1 tab PO Q6H PRN pain 5 days #20 10/13/25 10/13/25 Rx mg tablet (Percocet) tabs sertraline 100 mg tablet (Zoloft) 50 mg PO DAILY 10/1310/13/25 History tamsulosin 0.4 mg capsule (Flomax) 0.4 mg PO DAILY #7 caps 10/13/25 10/13/25 Rx Allergies Allergy/AdvReac Type Severity Reaction Status Date / Time No Known Drug Allergies Allergy Verified 10/13/25 04:48 Exam Narrative Exam Narrative: No acute distress, appears nontoxic Nonlabored respirations, symmetric chest rise, on room air Normal rate and rhythm, no peripheral edema Abd soft, non tender, non distended No BL CVA tenderness to palpation, no suprapubic tenderness Moves all extremities, no deformities Alert and oriented x 4, no acute focal deficits Skin dry, intact Appropriate, cooperative Constitutional Vital Signs, click to edit/add: Last Vital Signs Temp 97.7 F 10/15/25 08:00 Pulse 64 10/15/25 08:00 Resp 16 10/15/25 08:00 BP 114/66 10/15/25 08:00 Pulse Ox 95 10/15/25 08:00 O2 Del Method Room Air 10/15/25 08:00 Results Labs Labs: Short CBC 10/15/25 Range/Units 05:16 WBC 7.9 (4.0-11.0) 10^3/uL Hgb 13.6 L (14.0-18.0) g/dL Hct 37.6 L (42.0-54.0) % Plt Count 213 (150-450) 10^3/uL BMP 10/15/25 05:16 Sodium 141 Potassium 3.8 Chloride 106 Carbon Dioxide 28.2 BUN 14.0 Creatinine 1.41 H Glucose 97 Calcium 8.5 Liver Function 10/15/25 Range/Units 05:16 Total Bilirubin 1.2 H (0.2-1.0) mg/dL AST 23 (15-37) U/L ALT 43 (16-63) U/L Alkaline Phosphatase 55 (46-116) U/L Albumin 3.2 L (3.4-5.0) g/dL Imaging CT scan - abdomen: Attestation: I personally reviewed and interpreted this imaging study as follows: (4 mm left UPJ stone, minimal hydronephrosis, no other kidney stones) Assessment and Plan Assessment and Plan (1) Ureteral stone: (2) CASEY (acute kidney injury): (3) Intractable pain: Plan 45 year old male as above admitted with intractable pain and acute renal injury secondary to 4 mm left UPJ stone, failed medical expulsive therapy. Discussed risks/benefits of management options including proceeding with surgery and potential definitive stone treatment. Although pain has improved, no stone has been seen with straining and pt still with CASEY. Potential for repeat CT AP wo contrast to confirm passed stone vs proceeding with intervention. Patient elects to proceed with intervention. To OR for cystoscopy, left retrograde pyelogram, left ureteroscopy with laser lithotripsy/stone extraction, possible stent placement. Risks were discussed including but not limited to bleeding, pain, infection, damage to surrounding structures, inability to treat stone/place stent, and need for additional procedures.
[2025-10-15] MEDS: IOHEXOL 300 MG/ML - 50 ML BTL INJ (13:06)
--- NOTE | 2025-10-15 13:25 | P.URON_ITS ---
Urology Surgery Operative Note Operative Note Procedure Date: 10/15/25 Time Out Performed: yes Pre-op Diagnosis: Left ureteral stone Post-op Diagnosis: other (1. Left ureteral stone, 2. Left ureteral stricture, 3. Urethral stricture) Procedures performed: Cystoscopy, left retrograde pyelogram, left ureteroscopy, ureteral stent placement Anesthesia: General-LMA (Dr. Salter) Primary Surgeon: Adrianna Jo Complications: none Estimated blood loss (mL): 0 Findings: Soft, short membranous urethral stricture, passively dilated with cystoscope. Moderate bilobar prostatomegaly with elevated bladder neck, 1+ trabeculations. L RPG mildly dilated ureter distal 1 cm from UO, filling defect UPJ, mild hydronephrosis. L URS- dense short distal ureteral stricture, about 1 cm from UO, able to bypass with gentle pressure and manipulation from semirigid ureteroscope to ensure no stone present, however unable to advance much due to tightness. Unable to pass flexible ureteroscope over wire. Return of moderate debris and cloudy urine, hydronephrotic drip. Specimens: none Drains: 6Fr x 26 cm JJ left ureteral stent Indications for Procedures: 45 year old male admitted with intractable pain and acute renal injury secondary to a 4 mm left UPJ stone elected to proceed with definitive stone intervention of cystoscopy, left ureteroscopy with laser lithotripsy, possible stent placement. Risks were discussed including but not limited to bleeding, pain, infection, damage to surrounding structures, inability to treat the stone/place a stent, and need for additional procedures. The patient understands the stent is not permanent and needs to be removed or exchanged within 3 months to prevent encrustation, infection, invasive procedures and/or permanent renal damage. Detailed description of Procedure: After informed consent was obtained, the patient was brought to the operating room and transferred onto the operating table in supine position. Sequential compression devices were placed on bilateral lower extremities. The patient has been on empiric IV antibiotics and general anesthesia LMA was induced. They were positioned in modified dorsolithotomy with the appropriate pressure points padded, prepped, and draped in the usual sterile fashion for this procedure. An operative safety timeout was performed confirming the patient's identity, laterality and procedure, and all present agreed to proceed. I began by inserting a 22 [place] rigid cystoscope with 30 degree lens into the patient's urethra and bladder with some difficulty due to membranous urethral stricture, unable to accomodate scope. A wire was inserted through stricture and scope was advanced over wire into the bladder. There were no bladder tumors, lesions, stones or foreign bodies. Bilateral ureteral orifices were orthotopic and patent. I turned my attention to the left ureteral orifice and a 5- [place] open-ended catheter was inserted into the ureteral orifice and dilute contrast was injected for retrograde pyelogram with findings as above. A Sensor wire was inserted into the ureter up to the renal pelvis confirmed on fluoroscopy. Next a flexible ureteroscope was inserted over the wire, however unable to advance much past UO. A semirigid ureteroscope was inserted along the wire, noting a dense stricture about 1 cm proximal to UO. The semirigid ureteroscope was advanced over the wire and with gentle pressure and manipulation, was able to advance through the stricture a few cm. However, unable to advance much further due to tight ureter. Contrast was injected through the scope to ensure I was in the true lumen. Retrograde pyelogram confirmed appropriate position and filling defect in proximal ureter consistent with known stone. There was return of some debris and cloudy urine, hydronephrotic drip. The semirigid ureteroscope was removed. One last attempt at advancing flexible ureteroscope was wire was unsuccessful due to distal stricture. Therefore, a ureteral stent was placed to allow for passive dilation and drainage. The wire was backloaded through the cystoscope and a 6 Fr x 26 cm JJ ureteral stent was advanced over the wire with mild resistance, noting adequate curl in the renal pelvis and bladder on fluoroscopic and direct visualization. The bladder was drained and inspected one final time to ensure adequate position of stent and no undue trauma to the bladder was done. The stones were sent for pathology and the cystoscope was removed. The patient tolerated the procedure well without complication. The patient was awakened from anesthesia and sent to PACU in stable condition. Plan: Return to floor, stable for dc home on empiric abx x 1 week pending pain control and no post op fevers. Office will call to schedule left ureteroscopy, possible ureteral balloon dilation, laser lithotripsy, stent exchange in 1-2 weeks. Other Provider present: No
[2025-10-15] MEDS: HYDROMORPHONE HCL 0.5 MG/0.5 ML SYRINGE IV ×2 (14:05→14:30)
--- NOTE | 2025-10-15 14:13 | PC.NURSE ---
PATIENT STATES HAVING LOTS OF PAIN AND PRESSURE. PATIENT URINATED BLOOD TINGED URINE AND REQUESTED PAIN MEDICATION. IV DILAUDID WAS GIVEN. WITH RELIEF. CONTINUES TO FEEL IF HE HAS TO URINATE. GAVE URINAL PER HIS REQUEST.
--- NOTE | 2025-10-15 14:24 | PC.NURSE ---
PATIENT STATES HE HAS BURNING WITH URINATION. UNFORTUNATELY DR CASTILLO STATES HE WILL HAVE BURNING.
[2025-10-15] MEDS: OXYCODONE HCL 5 MG TABLET PO ×2 (15:58→20:23)
[2025-10-15] MEDS: TAMSULOSIN HCL 0.4 MG CAPSULE PO (20:23)
[2025-10-15] MEDS: 0.9 % SODIUM CHLORIDE 250 ML 10 ML IV (20:29)
[2025-10-15] MEDS: ACETAMINOPHEN 325 MG TABLET 650 MG PO (22:30)
[2025-10-16] MEDS: OXYCODONE HCL 5 MG TABLET PO ×3 (01:16→11:53)
[2025-10-16 03:46] VITALS: BP 130/72; PULSE 70; TEMP 36.7; O2SAT 98
[2025-10-16 05:48] LABS: Anion Gap 12.1; Blood Urea Nitrogen 12.0 mg/dL (7.0-18.0); Calcium 8.9 mg/dL (8.5-10.1); Carbon Dioxide 27.8 mmol/L (21.0-32.0); Chloride 105 mmol/L (98-107); Estimated GFR (African America >60 (>=60 mL/min/1.73m^2); Estimated GFR (Non-African Ame >60 (>=60 mL/min/1.73m^2); Glucose 103 mg/dL (74-106); Potassium 3.9 mmol/L (3.5-5.1); Sodium 141 mmol/L (136-145)
[2025-10-16 07:47] VITALS: BP 121/69; PULSE 72; TEMP 36.6; O2SAT 95
--- NOTE | 2025-10-16 07:51 | CT_ITS ---
The [address] [address] Patient Name: SARAI HEWITT MRN: [id number] date: 1980 Sex: M Assigned Patient Location: Current Patient Location: Accession/Order Number: [id number] Exam Date: 10/16/2025 09:48 Report Date: 10/16/2025 10:33 At the request of: MINE WINTER MD Procedure: CT abdomen pelvis wo con CT ABDOMEN AND PELVIS WITHOUT CONTRAST COMPARISON: 10/13/2025 CLINICAL DATA: Acute abdomen pain. Left ureteral stent placement on the yesterday. Spiral images were obtained through the abdomen and pelvis without contrast. This CT exam was performed using one or more following dose reduction techniques: Automated exposure control, adjustment of the mA and/or kV according to patient size, or use of iterative reconstruction technique. Limited cuts through the lung bases show minor developing atelectasis on the left. Evaluation the intra-abdominal organs is slightly limited by the absence of contrast. There is cholelithiasis. No intrahepatic masses are noted. The spleen, pancreas and adrenal glands show no acute findings. There is minor bilateral perinephric fibrofatty stranding. No renal calculi or hydronephrosis are noted. The renal pyramids are slightly hyperdense. A new left internal ureteral stents is visualized the tiny left UPJ stone on the comparison is still suspected. There is minor distal periureteral stranding however no fluid to suggest rupture. The abdominal aorta is normal caliber. There are no enlarged lymph nodes. No ascites or free air are identified. There are normal caliber small bowel loops. Fluid is seen within the stomach. There is stool along the colon. There is a tiny umbilical hernia containing fat. The bony structures are intact. Images through the pelvis show normal caliber small bowel. There is no appendiceal inflammation. A small amount of distal colonic stool is seen. There is minor diverticulosis. The prostate is not significantly enlarged. The urinary bladder is poorly distended and there is apparent wall thickening. It contains air which was likely introduced iatrogenically. The distal pigtail loop of the left stent is within the bladder. There is no pelvic ascites. CT/CT abdomen pelvis wo con IMPRESSION: NEW LEFT INTERNAL URETERAL STENTS, WITHOUT COMPLICATION. PERSISTENT TINY LEFT PROXIMAL URETERAL STONE. UNDER DISTENDED URINARY BLADDER WITH APPARENT WALL THICKENING. CORRELATION IS RECOMMENDED TO EXCLUDE ANY POSSIBILITY OF CYSTITIS. CHOLELITHIASIS. MINOR DIVERTICULOSIS. Impression dictated by: Claire Ortiz M.D. 10/16/2025 10:33 AM Dictation Location: [place] [address] Electronically authenticated by: [id number] Y Date: 10/16/2025 10:33
--- NOTE | 2025-10-16 08:05 | CM.NOTE ---
Rounds made with Dr. Torrez, pt c/o pain to L flank area. Dr. Torrez ordered CT scan abd/pelvis for today, possible discharge to home this afternoon. Pt will f/u with urology and PCP.
[2025-10-16] MEDS: TAMSULOSIN HCL 0.4 MG CAPSULE PO (08:32)
[2025-10-16] MEDS: KETOROLAC TROMETHAMINE 30 MG/ML VIAL 15 MG IVP (08:32)
[2025-10-16] MEDS: SERTRALINE HCL 50 MG TABLET PO (08:32)
--- NOTE | 2025-10-16 10:42 | PM.DS1 ---
DS: Providers Provider Date of admission: 10/13/25 20:52 Primary care physician: Joie Chowdhury NP Consults: 10/13/25 21:05 Consult to Urology Routine Consulting Provider: Adrianna Jo Reason for consultation: Lt ureter stone DS: Diagnosis Discharge Diagnosis (1) Ureteral stone: (2) CASEY (acute kidney injury): (3) Intractable pain: Plan As listed above, below and others that are not listed DS: Summary Hospital Course Hospital Course: Mr. Carranza is a 45-year-old gentleman who came in with left flank pain. He was found to have the followin mm left ureteral obstructing stone with hydro CASEY Discontinue Toradol and losartan Continued IV fluid infusion Kidney function had returned back to normal. Patient had cystoscopy and stent insertion. Repeat CAT scan showed no stent complication. Patient will be discharged home on a combination of medications as guided by urology in addition to antibiotic for 5 days Hypertension Blood pressure is on the low side Resumed losartan now that his kidney function had returned back to normal and his blood pressure have stabilized DVT prophylaxis Mechanical SCD due to anticipated procedure. Patient will be discharged to follow-up with urology and PCP Patient was instructed to return back to the emergency room with any worsening symptoms. Time Spent with Patient Time attestation: Total time spent providing and/or coordinating discharge services: Exam Constitutional Vital Signs, click to edit/add: Last Vital Signs Temp 97.8 F 10/16/25 07:47 Pulse 72 10/16/25 07:47 Resp 18 10/16/25 07:47 BP 121/69 10/16/25 07:47 Pulse Ox 95 10/16/25 07:47 O2 Del Method Room Air 10/16/25 07:47 DS: Data Data Completed and Pending Labs on day of discharge: Labs from last 24 hours 10/16/25 05:19 Sodium 141 Potassium 3.9 Chloride 105 Carbon Dioxide 27.8 Anion Gap 12.1 BUN 12.0 Creatinine 0.96 Est GFR ( Amer) >60 Est GFR (Non-Af Amer) >60 BUN/Creatinine Ratio 12.5 Glucose 103 Calcium 8.9 Discharge Plan Discharge Disposition: Home, Self-Care Condition: Fair Discharge Medications: New ketorolac 10 mg tablet 10 mg PO Q8H PRN (Reason: pain) 1 Days Qty: 10 0RF tamsulosin [Flomax] 0.4 mg capsule 0.4 mg PO DAILY Qty: 30 1RF oxybutynin chloride 5 mg tablet 5 mg PO Q8H PRN (Reason: bladder spasms, stent pain) Qty: 90 0RF cefuroxime axetil 250 mg tablet 250 mg PO BID 5 Days Qty: 10 0RF Continued amitriptyline 10 mg tablet 10 mg PO DAILY sertraline [Zoloft] 100 mg tablet 50 mg PO DAILY losartan 50 mg tablet 50 mg PO DAILY oxycodone-acetaminophen [Percocet] 5-325 mg tablet 1 tab PO Q6H PRN (Reason: pain) 5 Days Qty: 20 0RF ondansetron 4 mg tablet,disintegrating 4 mg PO Q6H PRN (Reason: nausea and vomiting) Qty: 20 0RF Discontinued tamsulosin [Flomax] 0.4 mg capsule 0.4 mg PO DAILY Qty: 7 0RF Activity: increase activity as tolerated Diet: advance to your usual diet Print Language: Tamazight Patient Instructions: Kidney Stones (DC), Ureteral Stent Placement (DC), Ureteroscopy (DC) Activity Restrictions/Additional Instructions: Tylenol 650-1000 mg every 6 hours alternated with ibuprofen 400-600 mg every 6 hours in between as needed for post-op pain. Tamsulosin daily for stent pain, difficulty voiding. If you get dizzy or lightheaded, take at night or stop. Do not take with other blood pressure medications Oxybutynin 5 mg every 8 hours as needed for bladder spasms and stent pain. Drink plenty of fluids and take stool softeners, as this medication may cause constipation, dry mouth and dry eyes. AZO for urinary discomfort/burning can be purchased at local pharmacy. This will make your urine orange. Return to ER for fevers > 101.5F, uncontrolled nausea/emesis, uncontrolled pain, or inability to void. The ureteral stent is not permanent and needs to be removed or exchanged within 3 months to prevent encrustation, infection, invasive procedures and/or permanent renal damage. OFFICE WILL CALL FOR THE NEXT STEP IN A DAY OR 2. Forms: Portal Instructions Referrals: Adrianna Jo MD [Physician, Urology] Referral Note: Office will call to schedule definitive stone treatment of ureteroscopy, laser lithotripsy, stent exchange, possible ureteral dilation in 1-2 weeks. Follow Up Appointments: Joie Chowdhury NP - Brenda 10/22 @ [facility] [phone] Dr. Jo (urology) - office will call patient to set up appt. [phone]
--- NOTE | 2025-10-16 18:49 | NUTR.NU ---
Pt admitted with N/V d/t renal colic and calculus. PO intakes of regular diet are generally 100% and appear to meet pt?s estimated nutrient requirements. No dietary concerns at this time. Pt plans to return home today.
--- NOTE | 2025-10-17 14:24 | CM.DCFOLLOWU ---
Person spoke with: [place] How are you feeling? Much Better How is your pain? Still having some pain but I'm managing Did you understand your discharge instructions? Yes Do you have any questions about your discharge instructions? No Were you given any prescriptions at discharge? Yes Were you able to get your prescriptions filled? Yes Do you understand how to take your medications as ordered? Yes Do you have any questions about your follow up appointment and do you plan to keep your follow up appointment? No questions. I plan on keeping my follow up appts. Is there anything else that you would like to discuss? No Questions/Comments/Concerns/Other:
== END 2025-10-16 12:12 | disposition home or self-care (01) ==
LOC: ER 19:33 → MS 10-15 07:51
PROVIDERS: Emergency Medicine; Hospitalist; Urology; Admitting Provider Internal Medicine; Emergency Provider Emergency Medicine; PCP Nurse Practitioner Women's Health; Visit Provider Internal Medicine
PROC: (CPT 910; principal; 2025-10-15 13:00)
DX: N13.2 Hydronephrosis with renal and ureteral calculous obstruction (principal); N17.9 Acute kidney failure, unspecified; N35.919 Unspecified urethral stricture, male, unspecified site; N13.5 Crossing vessel and stricture of ureter without hydronephrosis; I10 Essential (primary) hypertension; R11.2 Nausea with vomiting, unspecified; R10.9 Unspecified abdominal pain
CPT/HCPCS: 52332; 52351; 36415; 74018; 74176; 74420; 80048; 80053; 80076; 81001; 83605; 83690; 84484; 85025; 85730; 93005; 96361; 96374; 96375; 96376; 99285; G0378; J0696; J0780; J1100; J1171; J1885; J2003; J2250; J2270; J2405; J2704; J3010; Q9967